=== PATIENT | male | born 1980 | race Caucasian/White ===

== ENCOUNTER 2017-02-20 00:42 | Emergency (ER) | payer OTHER ==
[~2017-02-20 00:42] MED LIST: Acetaminophen/HYDROcodone 325-7.5 MG Tab PO ONE
[2017-02-20] MEDS ORDERED: Diphtheria,Pertussis(Acell),Tetanus Vaccine 0.5 ML Syringe IM ONE (01:12)
[2017-02-20] MEDS ORDERED: Silver Sulfadiazine 1% Crm 400 GM Jar TOP ONE (01:13)
[2017-02-20] MEDS ORDERED: Silver Sulfadiazine 1% Crm 50 GM Tube TOP ONE (01:16)
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
[2017-02-20 01:54] VITALS: BP 143/91
== END 2017-02-20 01:50 | disposition home or self-care (01) ==
LOC: MW.ED 00:42
DX: T21.01XA Burn of unspecified degree of chest wall, initial encounter (principal); T22.092A Burn of unspecified degree of multiple sites of left shoulder and upper limb, except wrist and hand, initial encounter; Z23 Encounter for immunization; F17.210 Nicotine dependence, cigarettes, uncomplicated; X12.XXXA Contact with other hot fluids, initial encounter; Y99.0 Civilian activity done for income or pay
CPT/HCPCS: 16020; 90471; 90715; 99283; A9270